=== PATIENT | male | born 1990 | race African-American/Black ===

== ENCOUNTER 2019-02-15 22:12 | Emergency (ER) | payer SELFPAY ==
[~2019-02-15] VITALS: Ht 180.3 cm; Wt 82.0 kg
[2019-02-15] MEDS ORDERED: KETOROLAC 30MG/ML VIAL IM ONE (23:00)
[2019-02-15] MEDS ORDERED: ALBUTEROL (0.083%) 2.5MG/3ML NEB HHN ONE (23:00)
[2019-02-16 01:15] VITALS: BP 131/80
== END 2019-02-16 01:17 | disposition home or self-care (01) ==
LOC: ER 22:12
DX: J06.9 Acute upper respiratory infection, unspecified (principal); F20.9 Schizophrenia, unspecified; J40 Bronchitis, not specified as acute or chronic; Z88.6 Allergy status to analgesic agent; Z88.8 Allergy status to other drugs, medicaments and biological substances
CPT/HCPCS: 71045; 87804; 93005; 94640; 96372; 99284; J1885; J7611; Z7610